=== PATIENT | male | born 1980 | race Caucasian/White ===

== ENCOUNTER 2020-08-21 21:11 | Emergency (ER) | payer OTHER ==
[~2020-08-21] VITALS: Ht 177.8 cm; Wt 86.2 kg
[2020-08-21 21:33] VITALS: BP_SYST 163
--- NOTE | 2020-08-21 21:33 | NUR ---
PT TO REMAIN IN TRIAGE UNTIL ER BED BECOMES AVAILABLE
--- NOTE | 2020-08-21 22:00 | NUR ---
PT AAO AND AMBULATORY REPORTING WORSENING RASH SINCE THURSDAY THAT IS SPREADING FROM THE BACK TO LEFT ABDOMEN.
--- NOTE | 2020-08-21 23:50 | NUR ---
DR. ZAMORA IN TRIAGE TO EVALUATE PT STATUS
[2020-08-21] MEDS ORDERED: ACYCLOVIR 400 MG TABLET ONE (23:57)
[2020-08-21] MEDS ORDERED: KETOROLAC TROMETHAMINE 60 MG/2 ML VIAL IM ONE (23:58)
[2020-08-22] MEDS: FAMCICLOVIR 250 MG PO ONE (00:06)
[2020-08-22] MEDS: LIDOCAINE PATCH 5% 1 EA TP ONE (00:07)
[2020-08-22] MEDS: KETOROLAC TROMETHAMINE 60 MG/2 ML VIAL IM ONE (00:07)
[2020-08-22] MEDS: ACYCLOVIR 400 MG TABLET PO ONE (00:08)
[2020-08-22 00:30] VITALS: BP_SYST 163
--- NOTE | 2020-08-22 00:30 | NUR ---
Patient given written and verbal discharge instructions and verbalizes understanding. DR. NOAH CAUSEY MD discussed with patient the results and treatment provided. Patient in stable condition. ID arm band removed. Rx of LIDODERM AND ACYCLOVIR given. Patient educated on pain management and to follow up with PMD. Pain Scale 0/10. Opportunity for questions provided and answered. Medication side effect fact sheet provided.
== END 2020-08-22 00:30 | disposition home or self-care (01) ==
LOC: SED 21:11
DX: B02.9 Zoster without complications (principal)
CPT/HCPCS: 96372; 99283; J1885